=== PATIENT | male | born 1960 | race Caucasian/White ===

== ENCOUNTER 2018-08-10 09:23 | Day surgery (SDC) | payer OTHER ==
[2018-08-04 12:57] VITALS: BMI 39.4
[2018-08-10] MEDS ORDERED: MIDAZOLAM HCL 2 MG/2 ML SINGLE DOSE VIAL ONE (10:36)
[2018-08-10] MEDS ORDERED: ONDANSETRON 4 MG/2 ML VIAL ONE (10:38)
[2018-08-10] MEDS ORDERED: ONDANSETRON 4 MG/2 ML VIAL IVPUSH PRN (10:49)
[2018-08-10] MEDS ORDERED: oxyCODONE HCL 5 MG TABLET PO PRN ×2 (10:49)
[2018-08-10] MEDS ORDERED: ACETAMINOPHEN 325 MG TABLET (FP) PO PRN (10:49)
[2018-08-10] MEDS ORDERED: LACTATED RINGERS SOLUTION 1,000 ML IV SCH (11:00)
[2018-08-10 11:43] VITALS: TEMP 98
--- NOTE | 2018-08-10 13:32 | OP ---
DATE OF OPERATION: 08/10/2018 PREOPERATIVE DIAGNOSIS: Left carpal tunnel syndrome. POSTOPERATIVE DIAGNOSIS: Left carpal tunnel syndrome. OPERATIVE PROCEDURE: Left carpal tunnel release. ANESTHESIA: Local with sedation. COMPLICATIONS: None. ESTIMATED BLOOD LOSS: Minimal. INDICATION FOR PROCEDURE: The patient is a 57-year-old male with the above finding indicated for operative treatment. Risks, benefits, and alternatives were discussed with the patient at length. Proper informed consent was obtained. DESCRIPTION OF PROCEDURE: After proper identification of the patient, correct operative site, patient was brought to the operating room and placed supine on the operating table, all bony prominences were padded. Left upper extremity was prepped and draped in the usual sterile fashion. Esmarch bandage used to exsanguinate the extremity and tourniquet was inflated to 250 mmHg. Longitudinal incision was made over the proximal aspect of the palm. Incision was made through the skin with blunt and sharp dissection through subcutaneous tissues. Palmar fascia was divided longitudinally. Transverse carpal ligament was divided longitudinally along with the distal 4 cm of the antebrachial fascia was divided longitudinally under direct visualization with loupe magnification. This provided complete release of the median nerve at the wrist. Wound was repaired with 5-0 nylon suture. Sterile dressings were applied. Patient was brought to the recovery room in stable condition. He tolerated the procedure well. Dex [id number]
[2018-08-10 14:29] VITALS: BP 146/77; PULSE 67
== END 2018-08-10 12:20 | disposition home or self-care (01) ==
LOC: FASU 09:23
PROVIDERS: ATTEND Orthopaedic Surgery Hand Surgery
PROC: 01N50ZZ Release Median Nerve, Open Approach (ICD-10-PCS; principal; 2018-08-10 11:02)
DX: G56.02 Carpal tunnel syndrome, left upper limb (principal)
CPT/HCPCS: 82962